=== PATIENT | female | born 2000 | race Caucasian/White ===

== ENCOUNTER 2019-11-03 18:04 | Emergency (ER) | payer SELFPAY ==
[2019-11-03] MEDS ORDERED: NA CHLORIDE 0.9% 1,000 ML ONE (18:58)
[2019-11-03] MEDS ORDERED: LORazepam 2 MG/ML VIAL ONE (18:58)
[2019-11-03 19:06] LABS: ALT/SGPT 65 U/L (12-78); AST/SGOT 93 U/L (15-37); Alkaline Phosphatase 63 U/L (45-117); BUN Blood Urea Nitrogen 12 mg/dL (7-18); Bicarbonate 24 mmol/L (21-32); Bilirubin Total 0.3 mg/dL (0.2-1.0); Glucose Level 117 mg/dL (74-106); Potassium 3.1 mmol/L (3.5-5.1); Protein, Total 7.5 g/dL (6.4-8.2); Sodium Level 140 mmol/L (136-145)
[2019-11-03 20:00] LABS: Urine Blood NEGATIVE (NEG); Urine Glucose NEGATIVE (NEG); Urine Protein NEGATIVE (NEG); Urine pH 7.5 (5.0-7.0)
[2019-11-03 21:48] VITALS: TEMP 97.2
[2019-11-03 21:53] VITALS: BP 120/85; O2SAT 99
--- NOTE | 2019-11-06 13:04 | EKG ---
Test Date: 2019-11-03 Test Time: 18:51:59 Event Marketing Manager: BRAYDEN MEASUREMENT RESULTS: Intervals: Rate: 97 VT: 162 QRSD: 98 QT: 354 QTc: 449 [place]: P: 72 VT: 162 QRS: 80 T: 64 INTERPRETIVE STATEMENTS: Normal sinus rhythm Possible Left atrial enlargement Borderline ECG No previous ECG available for comparison Electronically Signed On 11-06-19 13:03:55 CDT by Yonathan Rodriguez
--- NOTE | 2019-11-08 14:51 | ER ---
Nurse's Notes [facility] Name: Ariadne Dawkins Age: 19 yrs Sex: Female : 2000 Arrival Date: 11/03/2019 Time: 18:07 Bed 20 Private MD: Diagnosis: Anxiety disorder, unspecified Presentation: 11/02 18:08 Chief complaint: EMS states: Panic attack while driving home from work. On scene R30s, hb [id number], fingers cramped around steering wheel, not responding to calming measures. 20g LAC. Coronavirus screen: Proceed with normal triage. Ebola Screen: No symptoms or risks identified at this time. Initial Sepsis Screen: Does the patient meet any 2 criteria? RR > 20 per min. HR > 90 bpm. No. Patient's initial sepsis screen is negative. Does the patient have a suspected source of infection? No. Patient's initial sepsis screen is negative. Risk Assessment: Do you want to hurt yourself or someone else? Patient reports no desire to harm self or others. Onset of symptoms was November 03, 2019. 18:08 Method Of Arrival: EMS: [facility] hb 18:08 Acuity: PRETTY 3 hb Historical: - Allergies: 18:11 No Known Allergies; hb - Immunization history:: Adult Immunizations up to date. - Social history:: Smoking status: Patient denies any tobacco usage or history of. Patient/guardian denies using alcohol, street drugs, The patient lives with spouse. - Family history:: not pertinent. Screenin:51 Abuse screen: Denies threats or abuse. Nutritional screening: No deficits noted. Tuberculosis screening: No symptoms or risk factors identified. Fall Risk None identified. Assessment: 18:35 General: Appears distressed, Behavior is crying. Pain: Denies pain. Neuro: Level of Consciousness is awake, alert, obeys commands, Oriented to person, place, time, situation, Appropriate for age. Cardiovascular: Heart tones S1 S2 present Capillary refill < 3 seconds Patient's skin is warm and dry. Pulses are palpable in right radial artery and left radial artery. Respiratory: Airway is patent Respiratory effort is even, unlabored, Respiratory pattern is regular, symmetrical, Breath sounds are clear. GI: No signs and/or symptoms were reported involving the gastrointestinal system. : No signs and/or symptoms were reported regarding the genitourinary system. 19:15 Reassessment: Pt is still tearful at this time. Pt states that she does not want to be ah by herself and she has just had a really bad day. No other needs voiced at this time. Educated Pt on Ativan and possible side effects. Pt voiced understanding. 20:15 Reassessment: Pt resting with eyes closed and resp even and unlabored. No distress ah noted. Patient states symptoms have improved. 21:45 Reassessment: Discharge instructions given. Educated on prescription. Pt voiced ah understanding. Pt states that she plans to follow up with a physician tomorrow. Vital Signs: 18:08 BP 124 / 79; Pulse 94; Resp 22; Temp 97.2; Pulse Ox 96% on R/A; hb 18:15 BP 122 / 88; Pulse 97; Resp 20; Pulse Ox 98% ; ah 19:00 BP 124 / 85; Pulse 109; Resp 17; Pulse Ox 100% ; ah 20:00 BP 123 / 80; Pulse 104; Resp 18; Pulse Ox 100% ; ah 21:00 BP 120 / 85; Pulse 104; Resp 18; Pulse Ox 99% ; ah ED Course: 18:07 Patient arrived in ED. hb 18:08 José Miguel Perez MD is Attending Physician. ma2 18:11 Triage completed. hb 18:11 Arm band placed on. hb 18:21 Kristi Leal, RN is Primary Nurse. ah 18:59 Patient has correct armband on for positive identification. Bed in low position. Call mh5 light in reach. Side rails up X2. Warm blanket given. Pulse ox on. NIBP on. 18:59 EKG done, by ED staff, reviewed by José Miguel Perez MD. 5 19:00 Maintain EMS IV. Dressing intact. Site clean \T\ dry. mh5 19:51 No provider procedures requiring assistance completed. Maintain EMS IV. Dressing ah intact. Good blood return noted. Site clean \T\ dry. Administered Medications: 19:05 Drug: Ativan 1 mg Route: IVP; Site: left antecubital; 21:30 Follow up: Response: No adverse reaction 19:15 Drug: NS 0.9% 1000 ml Route: IV; Rate: 1 bolus; Site: left antecubital; Outcome: 21:01 Discharge ordered by . ma2 21:30 Discharged to home ambulatory. 21:30 Condition: good 21:30 Discharge instructions given to patient, Instructed on discharge instructions, follow up and referral plans. Demonstrated understanding of instructions, follow-up care, medications, Prescriptions given X 1. 21:43 Patient left the ED. ll1 Signatures: Lolita Ochoa, RN RN Mikayla Graham [facility] José Miguel Perez MD MD ma2 Kristi Leal RN RN ah Lewis, Lynsay, RN RN 1
--- NOTE | 2019-11-08 14:51 | EDPHYS ---
Physician Documentation [facility] Name: Ariadne Dawkins Age: 19 yrs Sex: Female : 2000 Arrival Date: 11/03/2019 Time: 18:07 Bed 20 Private MD: ED Physician José Miguel Perez HPI: 11/02 19:21 This 19 yrs old Female presents to ER via EMS with complaints of Anxiety. ma2 19:21 Onset: The symptoms/episode began/occurred gradually, 1 hour(s) ago. Severity of ma2 symptoms: At their worst the symptoms were moderate in the emergency department the symptoms have resolved. The patient has not experienced similar symptoms in the past. Historical: - Allergies: 18:11 No Known Allergies; hb - Immunization history:: Adult Immunizations up to date. - Social history:: Smoking status: Patient denies any tobacco usage or history of. Patient/guardian denies using alcohol, street drugs, The patient lives with spouse. - Family history:: not pertinent. ROS: 19:21 Eyes: Negative for injury, pain, redness, and discharge. ma2 19:21 All other systems are negative. Exam: 19:21 Constitutional: This is a well developed, well nourished patient who is awake, alert, ma2 and in no acute distress. ENT: Nares patent. No nasal discharge, no septal abnormalities noted. Tympanic membranes are normal and external auditory canals are clear. Oropharynx with no redness, swelling, or masses, exudates, or evidence of obstruction, uvula midline. Mucous membranes moist. Neck: Trachea midline, no thyromegaly or masses palpated, and no cervical lymphadenopathy. Supple, full range of motion without nuchal rigidity, or vertebral point tenderness. No Meningismus. Chest/axilla: Normal chest wall appearance and motion. Nontender with no deformity. No lesions are appreciated. Cardiovascular: Regular rate and rhythm with a normal S1 and S2. No gallops, murmurs, or rubs. Normal PMI, no JVD. No pulse deficits. Respiratory: Lungs have equal breath sounds bilaterally, clear to auscultation and percussion. No rales, rhonchi or wheezes noted. No increased work of breathing, no retractions or nasal flaring. Abdomen/GI: Soft, non-tender, with normal bowel sounds. No distension or tympany. No guarding or rebound. No evidence of tenderness throughout. Back: No spinal tenderness. No costovertebral tenderness. Full range of motion. Skin: Warm, dry with normal turgor. Normal color with no rashes, no lesions, and no evidence of cellulitis. MS/ Extremity: Pulses equal, no cyanosis. Neurovascular intact. Full, normal range of motion. 19:21 Psych: Behavior/mood is anxious. Vital Signs: 18:08 BP 124 / 79; Pulse 94; Resp 22; Temp 97.2; Pulse Ox 96% on R/A; hb 18:15 BP 122 / 88; Pulse 97; Resp 20; Pulse Ox 98% ; ah 19:00 BP 124 / 85; Pulse 109; Resp 17; Pulse Ox 100% ; ah 20:00 BP 123 / 80; Pulse 104; Resp 18; Pulse Ox 100% ; ah 21:00 BP 120 / 85; Pulse 104; Resp 18; Pulse Ox 99% ; ah MDM: 18:09 Patient medically screened. [facility] 19:21 Differential Diagnosis ansiety panic attaack. Differential Diagnosis stress d/o. Data ma2 reviewed: vital signs, nurses notes. Counseling: I had a detailed discussion with the patient and/or guardian regarding: the historical points, exam findings, and any diagnostic results supporting the discharge/admit diagnosis, the presence of at least one elevated blood pressure reading (>120/80) during this emergency department visit, the need for outpatient follow up. Response to treatment: the patient's symptoms have resolved after treatment. 11/02 18:10 Order name: CMP [facility] 11/02 19:10 Order name: Urine Dipstick--Ancillary (enter results) [facility] 11/02 18:10 Order name: EKG - Nurse/Tech; Complete Time: 18:59 [facility] 11/02 19:10 Order name: Urine --Ancillary (enter results) [facility] 11/02 18:10 Order name: Urine Dipstick-Ancillary (obtain specimen); Complete Time: 19:08 [facility] Administered Medications: 19:05 Drug: Ativan 1 mg Route: IVP; Site: left antecubital; 21:30 Follow up: Response: No adverse reaction 19:15 Drug: NS 0.9% 1000 ml Route: IV; Rate: 1 bolus; Site: left antecubital; Disposition: 05/27/20 21:01 Discharged to Home. Impression: Anxiety disorder, unspecified. - Condition is Stable. - Discharge Instructions: Panic Attacks. - Prescriptions for Ativan 0.5 mg Oral Tablet - take 1 tablet by ORAL route every 8 hours As needed; 20 tablet. - Medication Reconciliation Form, Thank You Letter, Antibiotic Education, Prescription Opioid Use form. - Follow up: Private Physician; When: Tomorrow; Reason: Continuance of care. Signatures: Dispatcher [employer] EDMS Lolita Ochoa RN MAGNUS José Miguel Perez MD MD ma2 Kristi Leal RN MAGNUS Paige Bell RN RN ll1 Corrections: (The following items were deleted from the chart) 21:43 21:01 11/03/2019 21:01 Discharged to Home. Impression: Anxiety disorder, unspecified. ll1 Condition is Stable. Discharge Instructions: Panic Attacks. Prescriptions for Ativan 0.5 mg Oral Tablet - take 1 tablet by ORAL route every 8 hours As needed; 20 tablet. and Forms are Medication Reconciliation Form, Thank You Letter, Antibiotic Education, Prescription Opioid Use. Follow up: Private Physician; When: Tomorrow; Reason: Continuance of care. ma2
== END 2019-11-03 21:43 | disposition home or self-care (01) ==
LOC: ER 18:04
DX: F41.9 Anxiety disorder, unspecified (principal)
CPT/HCPCS: 36415; 80053; 81003; 81025; 93005; 96374; 99284; J7030